=== PATIENT | male | born 1955 | race Caucasian/White ===

== ENCOUNTER 2017-11-10 14:45 | Observation (INO) | payer BC ==
[~2017-11-10] VITALS: Ht 190.5 cm; Wt 104.4 kg
[~2017-11-10 14:45] MED LIST: LUNESTA1 MG PO; PREDNISONE1 MG PO; Z.0.AMBIEN10 MG PO; Z.0.ASPIR 8181 MG; Z.0.BENTYL20 MG; Z.0.CRESTOR20 MG; Z.0.PREVACID30 MG; Z.0.PRILOSEC OTC20 M; Z.0.TRICOR145 MG
[2017-11-10] MEDS ORDERED: SODIUM CHLORIDE 0.9% 1000ML 1,000 ML IV SCH (15:30)
[2017-11-10] MEDS ORDERED: ASPIRIN 81 MG CHEW TAB PO ONE (15:30)
[2017-11-10 15:47] LABS: BASOPHILS # (AUTO) 0.1 (0.0-0.1); BASOPHILS % 0.5 % (0.0-1.0); EOSINOPHILS # (AUTO) 0.1 (0.0-0.4); EOSINOPHILS % 0.5 % (0.0-6.0); HEMATOCRIT 44.6 % (38.2-49.6); HEMOGLOBIN 15.4 g/dL (14.0-18.0); LYMPHOCYTES # (AUTO) 1.1 (1.0-3.2); LYMPHOCYTES % 12.2 % (18.0-39.1); MEAN CORPUSCULAR HGB CONC 34.5 g/dL (31-35); MEAN CORPUSCULAR VOLUME 86.9 fL (81-99); MONOCYTES # (AUTO) 0.5 (0.2-0.8); MONOCYTES % 5.6 % (4.4-11.3); NEUTROPHILS # (AUTO) 7.5 (2.1-6.9); NEUTROPHILS % 80.3 % (38.7-80.0); PLATELET COUNT 234 x10e3/uL (140-360); RED BLOOD COUNT 5.13 x10e6/uL (4.3-5.7); RED CELL DISTRIBUTION WIDTH 12.9 % (11.7-14.4)
[2017-11-10] MEDS ORDERED: LISINOPRIL10 MG PO (15:57)
[2017-11-10] MEDS ORDERED: PREDNISONE20 MG PO (15:58)
[2017-11-10 16:05] LABS: ALANINE AMINOTRANSFERASE 34 IU/L (0-55); ALBUMIN 3.9 g/dL (3.5-5.0); ALBUMIN/GLOBULIN RATIO 1.2 (0.8-2.0); ALKALINE PHOSPHATASE 114 IU/L (40-150); ANION GAP 12.8 mmol/L (8-16); BLOOD UREA NITROGEN 16 mg/dL (7-26); BUN/CREATININE RATIO 16 (6-25); CALCIUM 9.2 mg/dL (8.4-10.2); CARBON DIOXIDE 24 mmol/L (22-29); CHLORIDE 108 mmol/L (98-107); EST GLOMERULAR FILTRATION RATE > 60 ML/MIN (60-); GLUCOSE 131 mg/dL (74-118); POTASSIUM 4.8 mmol/L (3.5-5.1); SODIUM 140 mmol/L (136-145)
[2017-11-10 16:16] VITALS: BP 148/85
[2017-11-10 16:48] LABS: CREATINE KINASE MB 0.9 ng/mL (0.00-5.00); TROPONIN I 0.002 ng/mL (0-0.300)
[2017-11-10 19:15] VITALS: BP 132/72
[2017-11-10] MEDS ORDERED: ZOLPIDEM TARTRATE 10 MG TAB PO SCH (21:00)
[2017-11-10] MEDS ORDERED: NON-FORMULARY MEDICATION (Eszopiclone (Lunesta) 3 MG) PO SCH (21:00)
[2017-11-11] VITALS: BP 120/75
[2017-11-11 06:00] VITALS: BP 134/85
[2017-11-11] MEDS ORDERED: LIDOCAINE HCL 2% LOCAL 20 ML VIAL ONE (06:50)
[2017-11-11] MEDS ORDERED: HEPARIN SOD/SOD CHLORIDE 2,000 ML ONE (06:50)
[2017-11-11] MEDS ORDERED: IOPAMIDOL 370 MG/ML 200 ML INFUS..BTL INJ ONE (06:51)
[2017-11-11] MEDS ORDERED: MIDAZOLAM HCL 2 MG/2 ML VIAL ONE ×3 (06:58→07:58)
[2017-11-11] MEDS ORDERED: FENTANYL CITRATE/PF 100MCG/2 ML INJ ONE ×2 (06:58→07:58)
[2017-11-11] MEDS ORDERED: NITROGLYCERIN/D5W 200 MCG/ML 250 ML ONE (06:58)
[2017-11-11] MEDS ORDERED: HEPARIN SOD (PORCINE) 1000 UNIT/ML 30ML ONE (06:58)
[2017-11-11] MEDS ORDERED: VERAPAMIL HCL 2.5 MG/ML 2 ML VIAL ONE (06:58)
[2017-11-11] MEDS ORDERED: SODIUM CHLORIDE 0.9% 1000ML 1,000 ML ONE (06:58)
[2017-11-11 07:12] LABS: CREATINE KINASE MB 0.7 ng/mL (0.00-5.00); TROPONIN I 0.012 ng/mL (0-0.300)
[2017-11-11] MEDS ORDERED: PANTOPRAZOLE SOD 40 MG TABEC PO SCH (07:30)
[2017-11-11] MEDS ORDERED: ASPIRIN 81 MG ENTERIC COATED PO SCH (09:00)
[2017-11-11] MEDS ORDERED: ASPIRIN 325 MG TAB PO ONE (09:00)
[2017-11-11] MEDS ORDERED: NON-FORMULARY MEDICATION (Omeprazole Magnesium (Prilosec Otc) 20 MG) SCH (09:00)
--- NOTE | 2017-11-11 09:20 | History and Physical ---
CHIEF COMPLAINT: Chest pain. Mr. Montiel is 62 years old. He has polymyalgia rheumatica. He is on prednisone for the same. He has a history of hypertension, on lisinopril. He came to my office today with an episode of chest pain and near syncope while driving. His blood pressure was 180/105. He currently feels better. He is admitted to the hospital for further workup of the same. Lexiscan nuclear stress test 3 months ago was normal. PAST MEDICAL HISTORY: As listed above. SOCIAL HISTORY: Patient does not smoke he. He drinks alcohol 3-4 times a week on a social basis, not excessively. MEDICATIONS: Were reviewed. REVIEW OF SYSTEMS: Negative except as dictated in the history of present illness. PHYSICAL EXAMINATION VITAL SIGNS: Afebrile, heart rate is 83, blood pressure 134/85, O2 sat 95%. CARDIOVASCULAR: Regular rhythm. S4 gallop. RESPIRATORY: Clear to auscultation bilaterally. ABDOMEN: Soft. Bowel sounds heard adequately. Electrocardiogram shows sinus rhythm, otherwise normal. Hemoglobin is normal. Serum creatinine is 1. Cardiac troponin is negative. Telemetry shows sinus rhythm. ASSESSMENT: Unstable angina. RECOMMENDATIONS: Coronary angiography with preparation for Iodine allergy will be performed. This was discussed with the patient. He is agreeable for the same. Rule out myocardial infarction by recheck of cardiac enzymes. Job#: [id number] ERNA
--- NOTE | 2017-11-11 09:22 | Discharge Summary ---
DISCHARGE DIAGNOSES 1. Unstable angina with moderate coronary artery disease. 2. Hypertension. 3. Polymyalgia rheumatica. DISCHARGE CONDITION: Stable. DISCHARGE INSTRUCTIONS: Follow up with me in 2 weeks. DIET: Regular. Aggressive weight loss. Medical therapy. MEDICATIONS: Please see DEC. Mr. Montiel was admitted with chest pain and near syncopal episode. He underwent coronary angiography that demonstrated moderate coronary artery disease. He is being discharged home with instructions to follow up as above with initiation of aggressive medical therapy. LO DUNCAN MD Job#: [id number] [place]
--- NOTE | 2017-11-11 09:27 | Operative Report ---
DATE OF PROCEDURE: November 11, 2017 INDICATIONS: Unstable angina. PROCEDURES PERFORMED 1. Left heart catheterization. 2. Selective coronary angiography . 3. Deployment of right wrist transradial band. COMPLICATIONS: None. RECOMMENDATIONS: Aggressive medical therapy. Access obtained in the right radial artery using ultrasound guidance. A 5-Bruneian sheath was placed. Diagnostic coronary angiogram revealed patent left main. Left anterior descending artery diffuse 20% to 30% stenosis with focal 50% midleft anterior descending artery stenosis and focal apical left anterior descending artery 80% to 90% stenosis. This was a 1.5-mm vessel. Circumflex with mild disease. Right coronary artery diffuse 20% to 30% stenosis. Distal RCA at the bifurcation of the right posterior descending and posterior lateral arteries 50% stenosis. LV end-diastolic pressure of 12. No gradient across the aortic valve on pullback. Right wrist TR band applied. Patient discharged home same day. Job#: [id number] [place]
[2017-11-11 12:17] VITALS: BP 141/83
== END 2017-11-11 12:45 | disposition home or self-care (01) ==
LOC: IMCU 15:14
PROVIDERS: ADMIT Internal Medicine Interventional Cardiology; ATTEND Internal Medicine Interventional Cardiology
DX: I25.110 Atherosclerotic heart disease of native coronary artery with unstable angina pectoris (principal); M35.3 Polymyalgia rheumatica; I10 Essential (primary) hypertension; R55 Syncope and collapse
CPT/HCPCS: 36415 ×2; 77002; 80053; 82550 ×2; 82553 ×2; 84484 ×2; 85025; 93458; C1769; C1887; G0378 ×2; J1644; J2001; J2250; J7030 ×2; Q9967; 36140; 88305; 88311

== ENCOUNTER → 2018-02-21 | Outpatient (CLI) | payer OTHER ==
[~2018-02-21] MED LIST changes: +LISINOPRIL10 MG PO; +LORAZEPAM INJ 2 MG/ML VIAL ONE; +PREDNISONE20 MG PO
--- NOTE | 2018-02-21 09:12 | Diagnostic Imaging Report ---
TECHNIQUE: Magnetic resonance imaging of the RIGHT SHOULDER was performed WITHOUT injected contrast. COMPARISON: None available. HISTORY: Pain FINDINGS: MUSCLES AND TENDONS: Rotator Cuff: Tendons: Supraspinatus: Intact Infraspinatus: Intact Teres Minor: Intact Subscapularis: Intact Muscles: No focal muscle atrophy. Biceps Tendon: The long head of the biceps tendon is intact in the bicipital groove. Adjacent ganglion. GLENOHUMERAL JOINT: Glenoid Labrum: No displaced tear. Articular Cartilage: No focal defect. AC JOINT AND ACROMION: No hypertrophic degenerative changes of the acromioclavicular joint. Subacromial spurring with downsloping. BONE: No acute fracture. SOFT TISSUES: Subacromial subdeltoid bursal fluid. IMPRESSION: Subacromial subdeltoid bursitis. Intact rotator cuff without tear. Signed by: Dr. Demarco Corea M.D. on 02/21/2018 9:08 AM
== END ==
LOC: MRI 07:05
PROVIDERS: ATTEND Internal Medicine Interventional Cardiology
DX: M25.511 Pain in right shoulder (principal)
CPT/HCPCS: J2060

== ENCOUNTER 2021-02-25 06:43 | Inpatient (IN) | payer BC, OTHER ==
[2021-02-20 14:18] LABS: BASOPHILS # (AUTO) 0.1 (0.0-0.1); BASOPHILS % 0.7 % (0.0-1.0); EOSINOPHILS # (AUTO) 0.1 (0.0-0.4); EOSINOPHILS % 1.2 % (0.0-6.0); HEMATOCRIT 39.2 % (38.2-49.6); HEMOGLOBIN 12.8 g/dL (14.0-18.0); LYMPHOCYTES # (AUTO) 1.6 (1.0-3.2); MEAN CORPUSCULAR HEMOGLOBIN 27.5 pg (28-32); MEAN CORPUSCULAR HGB CONC 32.7 g/dL (31-35); MEAN CORPUSCULAR VOLUME 84.1 fL (81-99); MONOCYTES # (AUTO) 0.6 (0.2-0.8); MONOCYTES % 7.6 % (4.4-11.3); NEUTROPHILS # (AUTO) 5.1 (2.1-6.9); NEUTROPHILS % 68.2 % (38.7-80.0); PLATELET COUNT 249 x10e3/uL (140-360); RED BLOOD COUNT 4.66 x10e6/uL (4.3-5.7); RED CELL DISTRIBUTION WIDTH 13.4 % (11.7-14.4)
[2021-02-20 14:35] LABS: ANION GAP 10.7 mmol/L (8-16); BLOOD UREA NITROGEN 13 mg/dL (7-26); BUN/CREATININE RATIO 12 (6-25); CALCIUM 8.8 mg/dL (8.4-10.2); CARBON DIOXIDE 25 mmol/L (22-29); CHLORIDE 106 mmol/L (98-107); CREATININE, SERUM 1.11 mg/dL (0.72-1.25); EST GLOMERULAR FILTRATION RATE > 60 ML/MIN (60-); GLUCOSE 105 mg/dL (74-118); POTASSIUM 4.7 mmol/L (3.5-5.1); SODIUM 137 mmol/L (136-145)
[~2021-02-25] VITALS: Ht 190.5 cm; Wt 94.8 kg
[~2021-02-25 06:43] MED LIST changes: +LEXAPRO10 MG PO; +LIPITOR10 MG PO; -LORAZEPAM INJ 2 MG/ML VIAL ONE; +LOSARTAN POTASS25 MG PO; +PANTOPRAZOLE SO40 MG PO; +PROBIOTIC & AC1 EACH PO
[2021-02-25] MEDS ORDERED: BUPIVACAINE 0.25% 30ML SDV ONE (08:17)
[2021-02-25] MEDS ORDERED: BUPIVACAINE LIPOSOME/PF 266 MG/20 ML IJ ONE (08:54)
[2021-02-25] MEDS ORDERED: NALOXONE HCL INJ 0.4 MG/ML AMP IV PRN (11:45)
[2021-02-25] MEDS ORDERED: ONDANSETRON HCL INJ 2MG/ML 2ML 2 MG/ML VIAL IV PRN (11:45)
[2021-02-25] MEDS ORDERED: FENTANYL CITRATE/PF 100MCG/2 ML INJ ONE ×2 (12:36→13:49)
[2021-02-25] MEDS ORDERED: MIDAZOLAM HCL 2 MG/2 ML VIAL ONE (13:49)
[2021-02-25] MEDS ORDERED: ROCURONIUM BROMIDE 10 MG/ML 5ML VIAL IV ONE (13:53)
[2021-02-25] MEDS ORDERED: SEVOFLURANE INHAL SOLN 250 ML PEN BTL ONE (13:53)
[2021-02-25] MEDS ORDERED: LIDOCAINE HCL 2% LOCAL INJ 5 ML SDV VIAL INJ ONE (13:53)
[2021-02-25] MEDS ORDERED: POVIDONE IODINE 0.05% 0.05 % ML PO ONE (13:53)
[2021-02-25] MEDS ORDERED: DEXAMETHASONE SOD PHOS INJ 4 MG/ML VIAL ONE (13:53)
[2021-02-25] MEDS ORDERED: GLYCOPYRROLATE INJ 0.2 MG/ML VIAL ONE (13:53)
[2021-02-25] MEDS ORDERED: ONDANSETRON HCL INJ 2MG/ML 2ML 2 MG/ML VIAL ONE (13:53)
[2021-02-25] MEDS ORDERED: PROPOFOL IV EMULSION 10 MG/ML 20 ML VIAL ONE (13:53)
[2021-02-25] MEDS ORDERED: EPHEDRINE SULFATE INJ 50 MG/ML VIAL ONE (13:53)
[2021-02-25] MEDS ORDERED: NEOSTIGMINE 1 MG/ML 10ML VIAL ONE (13:53)
[2021-02-25] MEDS ORDERED: CEFAZOLIN SOD 1 GM VIAL ONE (13:53)
[2021-02-25] MEDS: HYDROMORPHONE 0.2MG/ML-SOD CHL 30ML PCA SYRINGE IV PRN (15:15)
[2021-02-25 15:30] VITALS: BP 150/92
[2021-02-25] MEDS ORDERED: ACETAMINOPHEN 1000 MG/100 ML IV PRN (16:00)
[2021-02-25] MEDS: SODIUM CHLORIDE 0.9% 1000ML 1,000 ML IV SCH (16:00)
[2021-02-25] MEDS: CEFAZOLIN SOD 1 GM/NS 50ML 50 ML IV SCH (18:02)
[2021-02-25] MEDS: PANTOPRAZOLE 40 MG 10ML VIAL IV SCH (18:02)
[2021-02-25] MEDS: LOSARTAN POTASSIUM 25 MG TAB PO SCH (18:03)
[2021-02-25 18:17] VITALS: BP 153/90
[2021-02-25 20:00] VITALS: BP 155/99
[2021-02-25 20:41] VITALS: BP 155/99
[2021-02-25] MEDS ORDERED: NON-FORMULARY MEDICATION (Eszopiclone (Lunesta) 3 MG) PO SCH (21:00)
[2021-02-25] MEDS: ESCITALOPRAM OXALATE 10 MG TAB PO SCH (21:31)
[2021-02-25] MEDS: ZOLPIDEM TARTRATE 5 MG TAB PO SCH (21:31)
[2021-02-26] VITALS (8 sets, daily range): BP systolic 134–168; BP diastolic 74–93
[2021-02-26] MEDS: CEFAZOLIN SOD 1 GM/NS 50ML 50 ML IV SCH (00:59)
[2021-02-26] MEDS: SODIUM CHLORIDE 0.9% 1000ML 1,000 ML IV SCH ×2 (02:00→13:37)
[2021-02-26] MEDS: HYDROMORPHONE 0.2MG/ML-SOD CHL 30ML PCA SYRINGE IV PRN (02:02)
[2021-02-26 05:05] LABS: BASOPHILS % 0.1 % (0.0-1.0); HEMATOCRIT 37.8 % (38.2-49.6); HEMOGLOBIN 12.3 g/dL (14.0-18.0); LYMPHOCYTES # (AUTO) 0.8 (1.0-3.2); LYMPHOCYTES % 6.5 % (18.0-39.1); MEAN CORPUSCULAR HEMOGLOBIN 27.7 pg (28-32); MEAN CORPUSCULAR HGB CONC 32.5 g/dL (31-35); MEAN CORPUSCULAR VOLUME 85.1 fL (81-99); MONOCYTES # (AUTO) 1.1 (0.2-0.8); MONOCYTES % 8.5 % (4.4-11.3); NEUTROPHILS # (AUTO) 10.8 (2.1-6.9); NEUTROPHILS % 84.4 % (38.7-80.0); PLATELET COUNT 255 x10e3/uL (140-360); RED BLOOD COUNT 4.44 x10e6/uL (4.3-5.7); RED CELL DISTRIBUTION WIDTH 13.5 % (11.7-14.4)
[2021-02-26 05:22] LABS: ANION GAP 14.8 mmol/L (8-16); BLOOD UREA NITROGEN 12 mg/dL (7-26); BUN/CREATININE RATIO 13 (6-25); CARBON DIOXIDE 23 mmol/L (22-29); CHLORIDE 105 mmol/L (98-107); EST GLOMERULAR FILTRATION RATE > 60 ML/MIN (60-); GLUCOSE 109 mg/dL (74-118); POTASSIUM 4.8 mmol/L (3.5-5.1); SODIUM 138 mmol/L (136-145)
[2021-02-26] MEDS ORDERED: KETOROLAC TROMETHAMINE 30 MG/ML VIAL IV STA ×2 (06:53→07:08)
[2021-02-26] MEDS ORDERED: KETOROLAC TROMETHAMINE 30 MG/ML VIAL ONE (07:04)
[2021-02-26] MEDS: LOSARTAN POTASSIUM 25 MG TAB PO SCH ×2 (09:00→19:17)
[2021-02-26] MEDS ORDERED: HYDROMORPHONE 0.2MG/ML-SOD CHL 30ML PCA SYRINGE IV PRN (11:15)
[2021-02-26] MEDS ORDERED: KETOROLAC TROMETHAMINE 30 MG/ML VIAL IM SCH (12:00)
[2021-02-26] MEDS ORDERED: KETOROLAC TROMETHAMINE 30 MG/ML VIAL IV SCH ×2 (13:00→17:00)
[2021-02-26] MEDS ORDERED: HYDROMORPHONE 1MG/1ML INJ IV PRN (18:15)
[2021-02-26] MEDS: PANTOPRAZOLE 40 MG 10ML VIAL IV SCH (19:17)
[2021-02-26] MEDS: KETOROLAC TROMETHAMINE 30 MG/ML VIAL IV SCH (20:22)
[2021-02-26] MEDS: DIPHENHYDRAMINE HCL INJ 50 MG/ML VIAL IV PRN (20:22)
[2021-02-26] MEDS: ESCITALOPRAM OXALATE 10 MG TAB PO SCH (20:24)
[2021-02-26] MEDS: ZOLPIDEM TARTRATE 5 MG TAB PO SCH ×2 (21:00→22:40)
[2021-02-27] VITALS (7 sets, daily range): BP systolic 157–171; BP diastolic 82–91
[2021-02-27] MEDS: KETOROLAC TROMETHAMINE 30 MG/ML VIAL IV SCH ×3 (01:39→13:33)
[2021-02-27] MEDS: SODIUM CHLORIDE 0.9% 1000ML 1,000 ML IV SCH (01:40)
[2021-02-27] MEDS: DIPHENHYDRAMINE HCL INJ 50 MG/ML VIAL IV PRN (01:40)
[2021-02-27] MEDS: HYDROCODONE/APAP 7.5MG-325MG 1 EA TAB PO PRN ×3 (06:30→18:00)
[2021-02-27] MEDS: LOSARTAN POTASSIUM 25 MG TAB PO SCH ×2 (08:40→18:00)
[2021-02-27] MEDS ORDERED: ONDANSETRON HCL 4 MG ORAL DISINTEGRATING TAB PO PRN (13:00)
[2021-02-27] MEDS ORDERED: HYDROCODON-ACE1 EA12 PO (17:45)
[2021-02-27] MEDS: PANTOPRAZOLE 40 MG 10ML VIAL IV SCH (17:59)
[2021-02-28] MEDS ORDERED: PANTOPRAZOLE SOD 40 MG TABEC PO SCH (07:30)
== END 2021-02-27 18:00 | disposition home or self-care (01) | DRG 337 ==
LOC: OR 06:43 → PACU V 12:43 → MED/SURG 15:16
PROVIDERS: ADMIT Surgery; ATTEND Surgery
PROC: 0DN80ZZ Release Small Intestine, Open Approach (ICD-10-PCS; 2021-02-25)
PROC: 0WUF0JZ Supplement Abdominal Wall with Synthetic Substitute, Open Approach (ICD-10-PCS; principal; 2021-02-25 07:30)
DX: K43.9 Ventral hernia without obstruction or gangrene (principal); Z20.822 Contact with and (suspected) exposure to COVID-19; K66.0 Peritoneal adhesions (postprocedural) (postinfection)
CPT/HCPCS: 36415; 71046; 80048; 85025; 93005; C1781; J0690; J1100; J1200; J1885; J2001; J2250; J2405; J2710; J3010; J7030; U0002

== ENCOUNTER 2021-03-25 13:37 | Inpatient (IN) | payer BC ==
[2021-03-25] VITALS (8 sets, daily range): BP systolic 147–171; BP diastolic 78–83
[~2021-03-25] VITALS: Ht 190.5 cm; Wt 94.9 kg
[~2021-03-25 13:37] MED LIST changes: +HYDROCODON-ACE1 EA12 PO
[2021-03-25] MEDS ORDERED: SODIUM CHLORIDE 0.9% 1000ML 1,000 ML IV STA (14:04)
[2021-03-25] MEDS ORDERED: ONDANSETRON HCL INJ 2MG/ML 2ML 2 MG/ML VIAL ONE (14:14)
[2021-03-25] MEDS ORDERED: KETOROLAC TROMETHAMINE 30 MG/ML VIAL ONE (14:14)
[2021-03-25] MEDS ORDERED: SODIUM CHLORIDE 0.9% 1000ML 1,000 ML ONE (14:14)
[2021-03-25] MEDS ORDERED: KETOROLAC TROMETHAMINE 30 MG/ML VIAL IV ONE (14:15)
[2021-03-25] MEDS ORDERED: ONDANSETRON HCL INJ 2MG/ML 2ML 2 MG/ML VIAL IV ONE (14:15)
[2021-03-25] MEDS ORDERED: FAMOTIDINE 20 MG/2 ML VIAL IV ONE ×2 (14:15→14:23)
[2021-03-25] MEDS ORDERED: IOPAMIDOL 370 MG/ML 200 ML INFUS..BTL INJ ONE (14:22)
[2021-03-25] MEDS ORDERED: SODIUM CHLORIDE 0.9% 50ML 50 ML ONE (14:22)
[2021-03-25] MEDS ORDERED: LEVOFLOXACIN 750MG/D5W 150ML 150 ML IV ONE (15:30)
[2021-03-25] MEDS ORDERED: METRONIDAZOLE 500MG/NS 100ML 100 ML IV ONE (15:37)
[2021-03-25] MEDS: METRONIDAZOLE 500MG/NS 100ML 100 ML IV SCH (15:40)
[2021-03-25] MEDS ORDERED: DIPHENHYDRAMINE HCL INJ 50 MG/ML VIAL IV PRN (15:45)
[2021-03-25] MEDS ORDERED: MORPHINE SULFATE INJ 4 MG/ML INJ 1ML IV PRN (15:45)
[2021-03-25] MEDS ORDERED: FAMOTIDINE 20 MG/2 ML VIAL IV SCH ×2 (17:00→21:00)
[2021-03-25] MEDS: ONDANSETRON HCL INJ 2MG/ML 2ML 2 MG/ML VIAL IV PRN ×2 (17:55→23:22)
[2021-03-25] MEDS ORDERED: DEXTROSE 5%/LACTATED RINGERS 1,000 ML IV ONE (18:00)
[2021-03-25] MEDS ORDERED: ACETAMINOPHEN 1000 MG/100 ML IV PRN (19:30)
[2021-03-25] MEDS: DEXTROSE 5%/LACTATED RINGERS 1,000 ML IV SCH (19:45)
[2021-03-25] MEDS: HYDROMORPHONE 1MG/1ML INJ IV PRN ×2 (20:00→23:22)
[2021-03-25] MEDS: MEROPENEM 1GM / NS 100ML 100 ML IV SCH (20:00)
[2021-03-26] VITALS (12 sets, daily range): BP systolic 117–165; BP diastolic 71–83
[2021-03-26] MEDS: METRONIDAZOLE 500MG/NS 100ML 100 ML IV SCH ×3 (00:29→16:45)
[2021-03-26] MEDS: HYDROMORPHONE 1MG/1ML INJ IV PRN ×6 (02:31→23:39)
[2021-03-26] MEDS: ONDANSETRON HCL INJ 2MG/ML 2ML 2 MG/ML VIAL IV PRN ×4 (03:35→14:45)
[2021-03-26] MEDS: MEROPENEM 1GM / NS 100ML 100 ML IV SCH ×3 (03:52→20:35)
[2021-03-26 06:32] LABS: BASOPHILS % 0.3 % (0.0-1.0); EOSINOPHILS # (AUTO) 0.1 (0.0-0.4); EOSINOPHILS % 0.5 % (0.0-6.0); HEMOGLOBIN 12.1 g/dL (14.0-18.0); LYMPHOCYTES # (AUTO) 1.7 (1.0-3.2); LYMPHOCYTES % 11.7 % (18.0-39.1); MEAN CORPUSCULAR HEMOGLOBIN 27.9 pg (28-32); MEAN CORPUSCULAR HGB CONC 32.7 g/dL (31-35); MEAN CORPUSCULAR VOLUME 85.3 fL (81-99); MONOCYTES # (AUTO) 1.1 (0.2-0.8); MONOCYTES % 7.7 % (4.4-11.3); NEUTROPHILS # (AUTO) 11.4 (2.1-6.9); NEUTROPHILS % 79.2 % (38.7-80.0); PLATELET COUNT 178 x10e3/uL (140-360); RED BLOOD COUNT 4.34 x10e6/uL (4.3-5.7); RED CELL DISTRIBUTION WIDTH 13.6 % (11.7-14.4)
[2021-03-26] MEDS: DEXTROSE 5%/LACTATED RINGERS 1,000 ML IV SCH ×3 (06:34→19:45)
[2021-03-26 06:53] LABS: ANION GAP 12.2 mmol/L (8-16); BLOOD UREA NITROGEN 14 mg/dL (7-26); BUN/CREATININE RATIO 16 (6-25); CALCIUM 8.3 mg/dL (8.4-10.2); CARBON DIOXIDE 23 mmol/L (22-29); CHLORIDE 107 mmol/L (98-107); EST GLOMERULAR FILTRATION RATE > 60 ML/MIN (60-); GLUCOSE 107 mg/dL (74-118); POTASSIUM 4.2 mmol/L (3.5-5.1); SODIUM 138 mmol/L (136-145)
[2021-03-26] MEDS ORDERED: LEVOFLOXACIN 500MG/D5W 100ML IV SCH (15:45)
[2021-03-26] MEDS ORDERED: LEVOFLOXACIN 500MG/D5W 100ML 100 ML IV SCH (16:00)
[2021-03-26 16:27] LABS: BASOPHILS % 0.3 % (0.0-1.0); EOSINOPHILS # (AUTO) 0.1 (0.0-0.4); EOSINOPHILS % 0.6 % (0.0-6.0); HEMATOCRIT 37.1 % (38.2-49.6); HEMOGLOBIN 12.2 g/dL (14.0-18.0); LYMPHOCYTES # (AUTO) 0.9 (1.0-3.2); LYMPHOCYTES % 7.4 % (18.0-39.1); MEAN CORPUSCULAR HEMOGLOBIN 28.2 pg (28-32); MEAN CORPUSCULAR HGB CONC 32.9 g/dL (31-35); MEAN CORPUSCULAR VOLUME 85.7 fL (81-99); MONOCYTES # (AUTO) 0.9 (0.2-0.8); MONOCYTES % 7.3 % (4.4-11.3); NEUTROPHILS # (AUTO) 9.8 (2.1-6.9); NEUTROPHILS % 83.9 % (38.7-80.0); PLATELET COUNT 169 x10e3/uL (140-360); RED BLOOD COUNT 4.33 x10e6/uL (4.3-5.7); RED CELL DISTRIBUTION WIDTH 13.9 % (11.7-14.4)
[2021-03-26] MEDS: PROMETHAZINE 12.5MG/ NACL 0.9% 12.5 MG/50 ML BAG IV PRN ×2 (17:08→22:40)
[2021-03-26] MEDS ORDERED: ACETAMINOPHEN 1000 MG/100 ML IV PRN (19:30)
[2021-03-26] MEDS: ZOLPIDEM TARTRATE 5 MG TAB PO PRN (22:49)
[2021-03-27] VITALS (10 sets, daily range): BP systolic 137–159; BP diastolic 74–82
[2021-03-27] MEDS: METRONIDAZOLE 500MG/NS 100ML 100 ML IV SCH ×3 (00:43→16:52)
[2021-03-27] MEDS: DEXTROSE 5%/LACTATED RINGERS 1,000 ML IV SCH ×3 (03:11→19:45)
[2021-03-27] MEDS: PROMETHAZINE 12.5MG/ NACL 0.9% 12.5 MG/50 ML BAG IV PRN ×2 (03:11→22:03)
[2021-03-27] MEDS: HYDROMORPHONE 1MG/1ML INJ IV PRN ×5 (03:11→20:36)
[2021-03-27] MEDS: MEROPENEM 1GM / NS 100ML 100 ML IV SCH ×3 (04:40→20:09)
[2021-03-27] MEDS ORDERED: DIATRIZOATE MEGL/DIATRIZOA SOD 30 ML BTL PO ONE (04:52)
[2021-03-27 04:56] LABS: BASOPHILS % 0.3 % (0.0-1.0); EOSINOPHILS # (AUTO) 0.2 (0.0-0.4); EOSINOPHILS % 1.4 % (0.0-6.0); HEMATOCRIT 37.3 % (38.2-49.6); HEMOGLOBIN 12.2 g/dL (14.0-18.0); LYMPHOCYTES # (AUTO) 0.9 (1.0-3.2); LYMPHOCYTES % 8.7 % (18.0-39.1); MEAN CORPUSCULAR HEMOGLOBIN 27.7 pg (28-32); MEAN CORPUSCULAR HGB CONC 32.7 g/dL (31-35); MEAN CORPUSCULAR VOLUME 84.8 fL (81-99); MONOCYTES % 9.4 % (4.4-11.3); NEUTROPHILS # (AUTO) 8.6 (2.1-6.9); NEUTROPHILS % 79.6 % (38.7-80.0); PLATELET COUNT 179 x10e3/uL (140-360); RED CELL DISTRIBUTION WIDTH 13.9 % (11.7-14.4)
[2021-03-27 05:23] LABS: ALANINE AMINOTRANSFERASE 10 IU/L (0-55); ALBUMIN 3.1 g/dL (3.5-5.0); ALBUMIN/GLOBULIN RATIO 1.1 (0.8-2.0); ALKALINE PHOSPHATASE 79 IU/L (40-150); ANION GAP 10.2 mmol/L (8-16); BLOOD UREA NITROGEN 7 mg/dL (7-26); BUN/CREATININE RATIO 7 (6-25); CALCIUM 8.6 mg/dL (8.4-10.2); CARBON DIOXIDE 24 mmol/L (22-29); CHLORIDE 108 mmol/L (98-107); CREATININE, SERUM 0.97 mg/dL (0.72-1.25); EST GLOMERULAR FILTRATION RATE > 60 ML/MIN (60-); GLUCOSE 117 mg/dL (74-118); POTASSIUM 4.2 mmol/L (3.5-5.1); SODIUM 138 mmol/L (136-145)
[2021-03-27] MEDS ORDERED: IOPAMIDOL 370 MG/ML 200 ML INFUS..BTL INJ ONE (06:06)
[2021-03-27] MEDS ORDERED: SODIUM CHLORIDE 0.9% 50ML 50 ML ONE (06:06)
[2021-03-27] MEDS: PANTOPRAZOLE 40 MG 10ML VIAL IV SCH (07:42)
[2021-03-27] MEDS: ZOLPIDEM TARTRATE 5 MG TAB PO PRN (22:08)
[2021-03-28] VITALS (10 sets, daily range): BP systolic 137–162; BP diastolic 75–96
[2021-03-28] MEDS: HYDROMORPHONE 1MG/1ML INJ IV PRN ×6 (00:18→23:30)
[2021-03-28] MEDS: METRONIDAZOLE 500MG/NS 100ML 100 ML IV SCH ×3 (00:25→16:26)
[2021-03-28] MEDS: DEXTROSE 5%/LACTATED RINGERS 1,000 ML IV SCH ×4 (02:54→23:30)
[2021-03-28] MEDS: MEROPENEM 1GM / NS 100ML 100 ML IV SCH ×3 (03:48→20:00)
[2021-03-28 06:12] LABS: BASOPHILS % 0.4 % (0.0-1.0); EOSINOPHILS # (AUTO) 0.2 (0.0-0.4); LYMPHOCYTES # (AUTO) 1.1 (1.0-3.2); LYMPHOCYTES % 11.9 % (18.0-39.1); MEAN CORPUSCULAR HGB CONC 33.3 g/dL (31-35); MEAN CORPUSCULAR VOLUME 83.9 fL (81-99); MONOCYTES # (AUTO) 0.9 (0.2-0.8); MONOCYTES % 9.1 % (4.4-11.3); PLATELET COUNT 187 x10e3/uL (140-360); RED BLOOD COUNT 4.29 x10e6/uL (4.3-5.7); RED CELL DISTRIBUTION WIDTH 13.7 % (11.7-14.4)
[2021-03-28 06:33] LABS: ANION GAP 11.9 mmol/L (8-16); BLOOD UREA NITROGEN 8 mg/dL (7-26); BUN/CREATININE RATIO 10 (6-25); CARBON DIOXIDE 23 mmol/L (22-29); CHLORIDE 105 mmol/L (98-107); CREATININE, SERUM 0.83 mg/dL (0.72-1.25); EST GLOMERULAR FILTRATION RATE > 60 ML/MIN (60-); GLUCOSE 105 mg/dL (74-118); POTASSIUM 3.9 mmol/L (3.5-5.1); SODIUM 136 mmol/L (136-145)
[2021-03-28 06:34] LABS: ALANINE AMINOTRANSFERASE 8 IU/L (0-55); ALBUMIN 2.9 g/dL (3.5-5.0); ALKALINE PHOSPHATASE 75 IU/L (40-150); CALCIUM 8.2 mg/dL (8.4-10.2)
[2021-03-28] MEDS: PANTOPRAZOLE 40 MG 10ML VIAL IV SCH (09:14)
[2021-03-28] MEDS: PROMETHAZINE 12.5MG/ NACL 0.9% 12.5 MG/50 ML BAG IV PRN (22:27)
[2021-03-28] MEDS: ZOLPIDEM TARTRATE 5 MG TAB PO PRN (22:30)
[2021-03-29] VITALS (9 sets, daily range): BP systolic 126–175; BP diastolic 74–93
[2021-03-29] MEDS: METRONIDAZOLE 500MG/NS 100ML 100 ML IV SCH ×3 (00:26→18:10)
[2021-03-29] MEDS: MEROPENEM 1GM / NS 100ML 100 ML IV SCH ×3 (04:00→19:41)
[2021-03-29] MEDS: HYDROMORPHONE 1MG/1ML INJ IV PRN ×4 (04:35→22:41)
[2021-03-29 06:27] LABS: BASOPHILS % 0.4 % (0.0-1.0); EOSINOPHILS # (AUTO) 0.2 (0.0-0.4); EOSINOPHILS % 3.2 % (0.0-6.0); HEMATOCRIT 36.3 % (38.2-49.6); HEMOGLOBIN 12.2 g/dL (14.0-18.0); LYMPHOCYTES # (AUTO) 1.1 (1.0-3.2); LYMPHOCYTES % 15.8 % (18.0-39.1); MEAN CORPUSCULAR HGB CONC 33.6 g/dL (31-35); MEAN CORPUSCULAR VOLUME 83.3 fL (81-99); MONOCYTES # (AUTO) 0.9 (0.2-0.8); MONOCYTES % 11.8 % (4.4-11.3); NEUTROPHILS # (AUTO) 4.9 (2.1-6.9); NEUTROPHILS % 68.4 % (38.7-80.0); PLATELET COUNT 201 x10e3/uL (140-360); RED BLOOD COUNT 4.36 x10e6/uL (4.3-5.7); RED CELL DISTRIBUTION WIDTH 13.4 % (11.7-14.4)
[2021-03-29 06:48] LABS: ALANINE AMINOTRANSFERASE 7 IU/L (0-55); ALBUMIN 2.8 g/dL (3.5-5.0); ALKALINE PHOSPHATASE 73 IU/L (40-150); ANION GAP 11.8 mmol/L (8-16); BLOOD UREA NITROGEN 7 mg/dL (7-26); BUN/CREATININE RATIO 9 (6-25); CALCIUM 8.1 mg/dL (8.4-10.2); CARBON DIOXIDE 24 mmol/L (22-29); CHLORIDE 105 mmol/L (98-107); CREATININE, SERUM 0.74 mg/dL (0.72-1.25); EST GLOMERULAR FILTRATION RATE > 60 ML/MIN (60-); GLUCOSE 111 mg/dL (74-118); POTASSIUM 3.8 mmol/L (3.5-5.1); SODIUM 137 mmol/L (136-145)
[2021-03-29] MEDS: PANTOPRAZOLE 40 MG 10ML VIAL IV SCH (08:13)
[2021-03-29] MEDS: DEXTROSE 5%/LACTATED RINGERS 1,000 ML IV SCH ×2 (11:58→22:47)
[2021-03-29] MEDS ORDERED: HYDRALAZINE HCL 20 MG/ML VIAL IV PRN (14:30)
[2021-03-29] MEDS: LOSARTAN POTASSIUM 25 MG TAB PO SCH (18:10)
[2021-03-29] MEDS: PROMETHAZINE 12.5MG/ NACL 0.9% 12.5 MG/50 ML BAG IV PRN (21:53)
[2021-03-29] MEDS: ZOLPIDEM TARTRATE 5 MG TAB PO PRN (21:56)
[2021-03-30] VITALS (7 sets, daily range): BP systolic 135–167; BP diastolic 65–91
[2021-03-30] MEDS: METRONIDAZOLE 500MG/NS 100ML 100 ML IV SCH ×3 (01:30→16:24)
[2021-03-30] MEDS: DEXTROSE 5%/LACTATED RINGERS 1,000 ML IV SCH ×2 (02:38→16:23)
[2021-03-30] MEDS: MEROPENEM 1GM / NS 100ML 100 ML IV SCH ×3 (04:00→20:57)
[2021-03-30 05:25] LABS: BASOPHILS % 0.3 % (0.0-1.0); EOSINOPHILS # (AUTO) 0.2 (0.0-0.4); EOSINOPHILS % 3.5 % (0.0-6.0); HEMATOCRIT 36.3 % (38.2-49.6); HEMOGLOBIN 12.3 g/dL (14.0-18.0); LYMPHOCYTES # (AUTO) 1.5 (1.0-3.2); LYMPHOCYTES % 24.4 % (18.0-39.1); MEAN CORPUSCULAR HEMOGLOBIN 28.1 pg (28-32); MEAN CORPUSCULAR HGB CONC 33.9 g/dL (31-35); MEAN CORPUSCULAR VOLUME 82.9 fL (81-99); MONOCYTES # (AUTO) 0.8 (0.2-0.8); MONOCYTES % 12.7 % (4.4-11.3); NEUTROPHILS # (AUTO) 3.6 (2.1-6.9); NEUTROPHILS % 58.6 % (38.7-80.0); PLATELET COUNT 209 x10e3/uL (140-360); RED BLOOD COUNT 4.38 x10e6/uL (4.3-5.7); RED CELL DISTRIBUTION WIDTH 13.2 % (11.7-14.4)
[2021-03-30 05:53] LABS: BLOOD UREA NITROGEN 8 mg/dL (7-26); BUN/CREATININE RATIO 11 (6-25); CALCIUM 8.4 mg/dL (8.4-10.2); CARBON DIOXIDE 23 mmol/L (22-29); CHLORIDE 108 mmol/L (98-107); CREATININE, SERUM 0.73 mg/dL (0.72-1.25); EST GLOMERULAR FILTRATION RATE > 60 ML/MIN (60-); GLUCOSE 92 mg/dL (74-118); SODIUM 139 mmol/L (136-145)
[2021-03-30] MEDS ORDERED: HYDROCODONE/APAP 7.5MG-325MG 1 EA TAB PO PRN (08:45)
[2021-03-30] MEDS: LOSARTAN POTASSIUM 25 MG TAB PO SCH ×2 (08:46→16:24)
[2021-03-30] MEDS: PANTOPRAZOLE 40 MG 10ML VIAL IV SCH (08:46)
[2021-03-30] MEDS: HYDROMORPHONE 1MG/1ML INJ IV PRN (21:08)
[2021-03-30] MEDS: PROMETHAZINE 12.5MG/ NACL 0.9% 12.5 MG/50 ML BAG IV PRN (22:02)
[2021-03-30] MEDS: ZOLPIDEM TARTRATE 5 MG TAB PO PRN (22:02)
[2021-03-31] VITALS: BP 135/79
[2021-03-31] MEDS: METRONIDAZOLE 500MG/NS 100ML 100 ML IV SCH ×2 (01:00→08:25)
[2021-03-31 04:00] VITALS: BP 148/86
[2021-03-31] MEDS: MEROPENEM 1GM / NS 100ML 100 ML IV SCH (05:21)
[2021-03-31 07:31] VITALS: BP 172/90
[2021-03-31 07:38] VITALS: BP 172/90
[2021-03-31] MEDS: PANTOPRAZOLE 40 MG 10ML VIAL IV SCH (08:25)
[2021-03-31] MEDS: LOSARTAN POTASSIUM 25 MG TAB PO SCH (08:26)
[2021-03-31 11:40] VITALS: BP 161/85
[2021-03-31] MEDS ORDERED: ONDANSETRON HCL 4 MG ORAL DISINTEGRATING TAB PO PRN (13:45)
[2021-03-31] MEDS ORDERED: MEROPENEM 1 GM in SODIUM CHLORIDE 0.9% 100 ML 100 ML IV SCH (20:00)
== END 2021-03-31 13:44 | disposition home or self-care (01) | DRG 392 ==
LOC: FSED 14:05 → ERHOLD 15:40 → MED/SURG 17:05 → OBSVTOIN 03-26 16:38
DX: K57.00 Diverticulitis of small intestine with perforation and abscess without bleeding (principal); Z20.822 Contact with and (suspected) exposure to COVID-19; I25.10 Atherosclerotic heart disease of native coronary artery without angina pectoris; I10 Essential (primary) hypertension; K21.9 Gastro-esophageal reflux disease without esophagitis; F32.9 Major depressive disorder, single episode, unspecified; E78.5 Hyperlipidemia, unspecified
CPT/HCPCS: 36415; 74177; 80048; 80053; 81003; 85025; 96374; 96375; 99284; G0378; J1170; J1885; J2405; J2550; J7030; Q9967; U0002